=== PATIENT | female | born 1985 | race Caucasian/White ===

== ENCOUNTER 2018-02-23 12:15 | Inpatient (IN) | payer BC, MEDICAID ==
[2018-02-23] VITALS (36 sets, daily range): BP systolic 84–156; BP diastolic 37–91; PULSE 60–108; TEMP 97.3–98.7
[~2018-02-23] VITALS: Ht 165.1 cm; Wt 112.7 kg
[~2018-02-23 12:15] MED LIST: LORTAB 5/500 501 TAB PO; NAPROXEN EC500 MG PO; NO HOME MEDICATIONS; PERCOCET 5/321 UDTAB PO; TEGRETOL 1100 MG/TAB PO; TEGRETOL 2200 MG/TA1 PO
[2018-02-23] MEDS ORDERED: VITAMIN D31000 I1 PO (12:34)
[2018-02-23] MEDS ORDERED: PRENATAL1 TA7 PO (12:34)
[2018-02-23 13:11] LABS: COLLECTION METHOD CLEAN CATCH
[2018-02-23 13:15] LABS: BASO % 0.1 % (0.0-2.0); EOS % 0.3 % (0-4.0); GRAN # 6.6 (1.4-6.5); GRAN % 72.2 % (42.2-75.2); HEMATOCRIT 38.9 % (37.0-47.0); HEMOGLOBIN 14.1 g/dl (12.5-16.0); LYMPH # 1.9 (1.2-3.4); LYMPH % 21.2 % (20.0-51.0); MEAN CELL VOLUME 86 fl (80.0-100.0); MEAN CORPUSCULAR HEMOGLOBIN 31 pg (27.0-31.0); MEAN CORPUSCULAR HGB CONC 36 g/dl (33.0-37.0); MONO # 0.5 (0.1-0.6); MONO % 5.8 % (1.7-9.3); PLATELET COUNT 181 K/mm3 (130-400); RED BLOOD COUNT 4.52 M/mm3 (4.10-5.30); REDCELL DISTRIBUTION WIDTH-CV 12.9 % (11.5-14.5)
[2018-02-23 13:19] LABS: MUCOUS Present /lpf; PH 5 (5-8); URINE APPEARANCE Hazy; URINE BACTERIA Rare /hpf; URINE BILIRUBIN Negative (NEGATIVE); URINE BLOOD 1+ (NEGATIVE); URINE COLOR Yellow; URINE GLUCOSE Negative (NEGATIVE); URINE KETONE Negative (NEGATIVE); URINE LEUKOCYTE ESTERASE Negative (NEGATIVE); URINE NITRATE Negative (NEGATIVE); URINE PROTEIN(semi-quant) Negative (NEGATIVE); URINE UROBILINOGEN Negative (NEGATIVE)
[2018-02-23 13:24] LABS: ALBUMIN 3.3 gm/dL (3.5-5.0); BILIRUBIN,TOTAL 0.4 mg/dL (0.0-1.0); CALCIUM 8.9 mg/dL (8.4-10.2); CREATININE, serum 0.72 mg/dL (0.52-1.25); POTASSIUM 4.1 mmol/L (3.4-5.0); TOTAL PROTEIN 6.4 gm/dL (6.4-8.2)
[2018-02-23 13:27] LABS: TRICYCLIC ANTIDEPRESS URINE NEGATIVE
[2018-02-24 02:00] VITALS: BP 129/72; PULSE 80; TEMP 98.7
[2018-02-24 05:00] VITALS: BP 135/72; PULSE 77; TEMP 98.1
[2018-02-24 06:46] LABS: HEMOGLOBIN 12.5 g/dl (12.5-16.0)
[2018-02-24 06:48] LABS: HEMATOCRIT 35.2 % (37.0-47.0)
[2018-02-24 07:09] VITALS: BP 130/66; PULSE 76; TEMP 98.6
[2018-02-24] MEDS ORDERED: IBU600 MG PO (12:17)
[2018-02-24] MEDS ORDERED: NORCO 325 MG-51 TAB PO (12:18)
[2018-02-24 16:30] VITALS: BP 121/81; PULSE 82; TEMP 97.7
[2018-02-24 20:00] VITALS: BP 123/57; PULSE 81; TEMP 98.5
[2018-02-25 07:00] VITALS: BP 133/74; PULSE 79; TEMP 97.8
[2018-02-25 15:55] VITALS: BP 139/57; PULSE 72; TEMP 98
[2018-02-25 21:30] VITALS: BP 132/82; PULSE 71; TEMP 98
[2018-02-26 07:00] VITALS: BP 136/71; PULSE 63; TEMP 97.7
== END 2018-02-26 11:30 | disposition home or self-care (01) | DRG 766 ==
LOC: LDRO 12:15 → LDR 13:45 → OB 13:45
PROVIDERS: Obstetrics & Gynecology
PROC: 10D00Z1 Extraction of Products of Conception, Low, Open Approach (ICD-10-PCS; principal; 2018-02-23)
DX: O76 Abnormality in fetal heart rate and rhythm complicating labor and delivery (principal); O13.4 Gestational [pregnancy-induced] hypertension without significant proteinuria, complicating childbirth; Z3A.38 38 weeks gestation of pregnancy; Z37.0 Single live birth; O42.02 Full-term premature rupture of membranes, onset of labor within 24 hours of rupture; O99.334 Smoking (tobacco) complicating childbirth; Z22.330 Carrier of Group B streptococcus; O62.1 Secondary uterine inertia
CPT/HCPCS: J0690; J2270; J2370; J2400; J2540; J7120

== ENCOUNTER 2019-04-16 13:07 | Outpatient (RCR) | payer OTHER ==
[~2019-04-16 13:07] MED LIST changes: +IBU600 MG PO; +NORCO 325 MG-51 TAB PO; +PRENATAL1 TA7 PO; +VITAMIN D31000 I1 PO
== END 2019-04-20 14:04 | disposition home or self-care (01) ==
LOC: WSOH 13:07
DX: S39.012A Strain of muscle, fascia and tendon of lower back, initial encounter (principal); X50.0XXA Overexertion from strenuous movement or load, initial encounter; Y92.214 College as the place of occurrence of the external cause; Y99.0 Civilian activity done for income or pay; E66.3 Overweight